=== PATIENT | female | born 1950 | race Caucasian/White ===

== ENCOUNTER → 2017-11-15 | Outpatient (CLI) | payer MEDICARE, BC | LOC: MC.RAD 11:38 | DX: Z12.31 Encounter for screening mammogram for malignant neoplasm of breast (principal) ==

== ENCOUNTER → 2019-12-15 | Outpatient (CLI) | payer MEDICARE | LOC: MC.RAD 12:11 | DX: Z12.31 Encounter for screening mammogram for malignant neoplasm of breast (principal) ==

== ENCOUNTER → 2021-12-02 | Outpatient (CLI) | payer MEDICARE | LOC: MC.RAD 16:02 | DX: Z12.31 Encounter for screening mammogram for malignant neoplasm of breast (principal) ==

== ENCOUNTER → 2023-06-08 | Outpatient (CLI) | payer MEDICARE | LOC: MC.RAD 09:26 | DX: Z12.31 Encounter for screening mammogram for malignant neoplasm of breast (principal) ==